=== PATIENT | male | born 1990 | race African-American/Black ===

== ENCOUNTER 2017-07-17 20:41 | Emergency (ER) | payer BC, OTHER ==
[~2017-07-17] VITALS: Ht 175.3 cm; Wt 59.0 kg
--- NOTE | ~2017-07-17 | EKG ---
[place] [address] [facility] [employer] [place] [address] ELECTROCARDIOGRAM REPORT Name: EDNADANIEL Room #: DEP Kamila#: [id number] Admission: 07/17/17 Attend Phys: Discharge: 07/17/17 Date of : 88 Report #: [id number] THIS REPORT FOR: //name// [facility] ED Test Date: 2017-07-17 Test Time: 20:48:27 Pat Name: DANIEL BISHOP Department: Room: Gender: M Autism Tutor: MZOOK : 1990 Requested By: Connie Castellanos Order Number: [id number] MD: David Matute Measurements Intervals [place] Rate: 85 P: 83 NC: 130 QRS: 56 QRSD: 92 T: 51 QT: 374 QTc: 445 Interpretive Statements Sinus rhythm LVH by voltage ST elev, probable normal early repol pattern No previous ECG available for comparison Electronically Signed On 07-19-2017 7:55:42 [employer] by David Matute [email or web address] <ELECTRONICALLY SIGNED> By: David Matute MD, [facility] 07/19/17 0755 2048 47 David Matute MD, FACC /EPI
[~2017-07-17 20:41] MED LIST: ADVIL200 M1 PO; ANUSOL-HC30 GM RC; ASPIR-TRIN325 MG PO; BACTRIM DS TAB1 EAC1 PO; CLARITIN10 MG PO; HYDROCORTISONE30 G9 RECTAL; IBUPROFEN 200200 M1 PO; IBUPROFEN 600600 M1 PO; MEDROLDOSEPACK PO; PREDNISONE 20 M20 MG PO; UNICOMPLEX M TA1 TA1 PO
[2017-07-17 20:56] LABS: ABSOLUTE NEUTROPHILS 1.9 thou/uL (1.4-8.2); BASOPHILS 1.2 % (0.0-2.0); EOSINOPHILS 2.4 % (0.0-3.0); HEMATOCRIT 41.9 % (42.0-52.0); LYMPHOCYTES 46.4 % (24.0-44.0); MCH 27.1 pg (26.0-34.0); MCHC 33.4 g/dL (28.0-37.0); MCV 81.1 fL (80.0-100.0); MONOCYTES 10.1 % (1.0-8.0); PLATELET COUNT 196 thou/uL (150-400); POLYS 39.9 % (36.0-66.0); RBC 5.17 mil/uL (4.50-6.00); RDW 13.7 % (10.5-14.5); WBC 4.9 thou/uL (4.0-11.0)
[2017-07-17 20:57] LABS: MANUAL DIFF NO
[2017-07-17 21:03] LABS: ANION GAP 7 mmol/L (7-16); BUN 16 mg/dL (7-18); CALCIUM 9.2 mg/dL (8.5-10.1); CHLORIDE 102 mmol/L (98-107); CO2 29 mmol/L (21-32); CREATININE 1.1 mg/dL (0.7-1.3); GLUCOSE 116 mg/dL (74-106); POTASSIUM 3.2 mmol/L (3.5-5.1); SODIUM 138 mmol/L (136-145)
[2017-07-17 21:12] LABS: TROPONIN-I < 0.04 ng/mL (<0.06)
[2017-07-17] MEDS ORDERED: NAPROSYN500 MG PO (21:43)
[2017-07-17 21:49] VITALS: BP 125/74
== END 2017-07-17 21:49 | disposition home or self-care (01) ==
LOC: ER 20:41
PROVIDERS: Emergency Medicine
DX: R07.9 Chest pain, unspecified (principal); J45.909 Unspecified asthma, uncomplicated; Z88.2 Allergy status to sulfonamides